=== PATIENT | female | born 1960 | race Caucasian/White ===

== ENCOUNTER 2016-04-16 20:27 | Emergency (ER) | payer MEDICARE ==
--- NOTE | ~2016-04-16 | US85 ---
[facility] A Service [facility] RADIOLOGY TEXT RESULTS PATIENT: MARY ANNE LARSON LOCATION: [place] : 60 UNIT #: [id number] AGE: [address]: Gutierrez Centeno MD SEX: F ORDER DR: [id number] [facility] [address] [place], [place] [address] [id number] E MR#: [id number] Acc #: [id number] NAME: MARY ANNE LARSON : 1960 SEX: F STUDY DATE/TIME: 04/16/2016 19:52 UNIT: [place] ROOM: STUDY DESCRIPTION: [facility] Attending Physician: Gutierrez Centeno M.D. Ordering Physician: Gutierrez Centeno M.D. Primary Care Physician: Primary Care Physician No MEDICAL IMAGING REPORT This report is preliminary unless electronic signature is present EXAM Left lower extremity Doppler venous ultrasound DATE 04/16/2016 HISTORY 55-year-old female with left lower extremity seeping for 2 days. Swelling. Diabetes. Hypertension. COMPARISON None TECHNIQUE Venous ultrasound examination of the left lower extremity was performed using grayscale, spectral Doppler and color flow Doppler imaging. FINDINGS The study is technically challenging secondary to degradation by the patient's body habitus. The examination is negative. There is no evidence of left lower extremity deep venous thrombus from the groin to the lower calf. Visualized greater saphenous vein is also patent. IMPRESSION Negative examination. No evidence of left lower extremity deep venous thrombosis. Dictated by... Nadege Nicholson M.D. THIS IS AN ELECTRONICALLY VERIFIED REPORT Nadege Nicholson M.D. at 04/17/2016 7:01 PM [facility] A Service of [facility] RADIOLOGY TEXT RESULTS PATIENT: MARY ANNE LARSON LOCATION: [place] : 60 UNIT #: [id number] AGE: [address]: Gutierrez Centeno MD SEX: F ORDER DR: DENISE/delvis TD: 04/17/2016 12:16 JOB #: [id number] MEDICAL IMAGING REPORT COPY
[2016-04-16 19:05] LABS: BASOPHIL% 0.4 % (0-2.5); EOSINOPHIL# 0.2 X10e3 (0-0.7); EOSINOPHIL% 1.8 % (0.0-7.0); HEMATOCRIT 38.6 % (35.0-45.0); HEMOGLOBIN 12.6 gm/dL (12.0-16.0); LYMPHOCYTE# 1.6 X10e3 (1.0-3.5); LYMPHOCYTE% 15.5 % (17.0-45.0); MEAN CELL VOLUME 75.3 FL (83-96); MEAN CORPUSCULAR HEMOGLOBIN 24.6 PG (28-34); MEAN CORPUSCULAR HGB CONC 32.7 g/dL (30-36); MEAN PLATELET VOLUME 9.3 FL (6.5-11.5); MONOCYTE# 0.7 X10e3 (0-1.0); MONOCYTE% 7.1 % (3.0-12.0); NEUTROPHIL# 7.9 X10e3 (1.5-7.1); NEUTROPHIL% 75.2 % (40-75); PLATELET COUNT 226 X10e3 (140-420); RED BLOOD COUNT 5.13 X10e (3.90-5.30); RED CELL DISTRIBUTION WIDTH 18.2 % (11.0-15.5); WHITE BLOOD COUNT 10.5 X10e3 (4.0-10.5)
[2016-04-16 19:11] LABS: DIFF IND NO
[2016-04-16 19:30] LABS: BLOOD UREA NITROGEN 27 mg/dL (9-23); CALCIUM SERUM 9.2 mg/dL (8.4-10.2); CARBON DIOXIDE 25 mmol/L (22-31); CHLORIDE 97 mmol/L (100-111); CREATININE SERUM 0.9 mg/dL (0.6-1.4); GLOM FILT RATE Estimated ABOVE60 mL/min (>60); GLUCOSE FASTING 178 mg/dL (70-110); POTASSIUM 4.1 mmol/L (3.5-5.1); SODIUM 133 mmol/L (135-145)
[~2016-04-16 20:27] MED LIST: ACETAMINOPHEN PO; ATRAC-TAIN142 GM; AVALIDE 300-251 TAB PO; AVALIDE PO; BACTRIM DS TABL1 TA1 PO; BUMEX1 MG PO; BYSTOLIC PO; BYSTOLIC10 MG PO; CLINDAMYCIN HC300 MG PO; DAKIN'S473 M1 TP; DAPTOMYCIN IV; DIFLUCAN PO; DIOVAN HCT 160-1 TAB PO; DUONEB 2.5-0.5 M3 ML NEB; ENABLEX7.5 MG PO; GABAPENTIN800 MG PO; GLIPIZIDE-METFO1 TA5 PO; HYDROCODON-ACE1 EAC1 PO; HYDROCORDONE PO; IBUPROFEN800 MG PO; IRON325 ( 65 ) PO; K-DUR10 MEQ PO; K-DUR20 ME1 PO; KEFLEX500 MG PO; LANTUS100 U/ML PO; LANTUS100 UNITS/ SUBQ; LASIX20 MG PO; LEVAQUIN PO; LEVEMIR100 U/ML SQ; LEVEMIR100 U/ML SUBQ; LISINOPRIL20 MG PO; LORTAB 7.5-5001 TAB PO; MEROPENEM500 MG IV; METOPROLOL TAR25 MG PO; MYCOSTATIN15 GM POW EXT; Miconazole TOP; NORCO 10-325 TA1 TAB PO; NOVOLOG100 U/ML SUBQ; NYSTATIN1 EAC1 TOP; PREDNISONE PO; PRILOSEC PO; PRILOSEC40 MG PO; PROTONIX PO; REQUIP1 MG PO; ROPINIROLE HCL1 MG PO; SANTYL15 G1 TP; SYNTHROID PO; TYLENOL ARTHRITIS; TYLENOL EXTRA500 M1 PO; ULTRAM PO; VASOTEC PO; ZOLOFT PO; ZYVOX600 MG PO
== END 2016-04-16 21:33 | disposition home or self-care (01) ==
LOC: CED 20:27
PROVIDERS: Emergency Medicine
DX: L03.116 Cellulitis of left lower limb (principal); I10 Essential (primary) hypertension; E11.9 Type 2 diabetes mellitus without complications; K21.9 Gastro-esophageal reflux disease without esophagitis
CPT/HCPCS: 36415; 80048; 85025; 87070; 87077; 87186; 87205; 93971; 96365; 96366; 99284